=== PATIENT | female | born 1960 | race Caucasian/White ===

== ENCOUNTER 2022-06-13 10:09 | Emergency (ER) | payer BC ==
[2022-06-13] MEDS ORDERED: Acetaminophen/oxyCODONE 325-5 MG Tab PO STA (12:12)
[2022-06-13] MEDS ORDERED: Ketorolac 60 MG/2 ML SDV IM ONE (12:12)
== END 2022-06-13 12:30 | disposition home or self-care (01) ==
LOC: MW.ED 10:09
DX: S89.91XA Unspecified injury of right lower leg, initial encounter (principal); Z88.5 Allergy status to narcotic agent; X50.1XXA Overexertion from prolonged static or awkward postures, initial encounter
CPT/HCPCS: 73562; 96372; 99283; A9270; J1885